=== PATIENT | female | born 1960 | race Two or more races ===

== ENCOUNTER 2021-10-04 12:45 | Emergency (ER) | payer OTHER ==
[~2021-10-04] VITALS: Ht 162.6 cm; Wt 63.5 kg
[~2021-10-04 12:45] MED LIST: CLONAZEPAM0.5 MG; ZOLOFT25 MG
== END 2021-10-04 15:58 | disposition home or self-care (01) ==
LOC: ER 12:45
DX: B34.9 Viral infection, unspecified (principal)